=== PATIENT | male | born 1975 | race American Indian/Alaskan Native ===

== ENCOUNTER 2017-08-23 03:59 | Emergency (ER) | payer SELFPAY ==
[2017-08-23 04:12] VITALS: BP 150/96
--- NOTE | 2017-08-23 05:48 | Emergency Department Report ---
ED ENT HPI - General Chief complaint: Dental/Oral Stated complaint: TOOTH ACHE Time Seen by Provider: 08/23/17 05:35 Source: patient Mode of arrival: Ambulatory Limitations: No Limitations - History of Present Illness Initial comments: 42-year-old male past medical history diabetes presents with complaint of left- sided toothache with associated dental abscess. Patient is awake alert and oriented 3. nontoxic appearing, not in acute distress. Denies fevers or chills. States he has noticed some left-sided lower gumline swelling and has an active cavity in this area. Patient states she has follow-up with a dentist this upcoming Friday. complaint: tooth pain Onset/Timin -: week(s) Location: tooth # 1 - cavity here Severity: mild, moderate Severity scale (0 -10): 6 Quality: aching Worsens with: eating Context- Dental: history of dental caries, poor dental care Associated Symptoms: gum swelling, toothache - Related Data Previous Rx's Medication Instructions Recorded Last Taken Type Insulin NPH/Regular [NovoLIN 70/30] 20 unit SUB-Q BIDDIAB #1 vial 09/26/14 Unknown Rx Levofloxacin [Levaquin TAB] 500 mg PO QDAY #7 tablet 09/28/14 Unknown Rx Ondansetron [Zofran Odt] 4 mg PO Q8HR #12 tab.rapdis 04/21/15 Unknown Rx Amoxicillin [Trimox CAP] 500 mg PO Q8H #30 capsule 08/23/17 Unknown Rx Chlorhexidine Mouthwash [Peridex] 15 ml MM BID #1 bottle 08/23/17 Unknown Rx HYDROcodone/APAP 5-325 [[place] 1 each PO Q6HR PRN #12 tablet 08/23/17 Unknown Rx 5/325] Ibuprofen [Motrin] 800 mg PO Q8HR PRN #25 tablet 08/23/17 Unknown Rx Allergies Allergy/AdvReac Type Severity Reaction Status Date / Time No Known Allergies Allergy Verified 08/23/17 04:06 ED Dental HPI - General Chief complaint: Dental/Oral Stated complaint: TOOTH ACHE Time Seen by Provider: 08/23/17 05:35 Source: patient Mode of arrival: Ambulatory Limitations: No Limitations - Related Data Previous Rx's Medication Instructions Recorded Last Taken Type Insulin NPH/Regular [NovoLIN 70/30] 20 unit SUB-Q BIDDIAB #1 vial 09/26/14 Unknown Rx Levofloxacin [Levaquin TAB] 500 mg PO QDAY #7 tablet 09/28/14 Unknown Rx Ondansetron [Zofran Odt] 4 mg PO Q8HR #12 tab.rapdis 04/21/15 Unknown Rx Amoxicillin [Trimox CAP] 500 mg PO Q8H #30 capsule 08/23/17 Unknown Rx Chlorhexidine Mouthwash [Peridex] 15 ml MM BID #1 bottle 08/23/17 Unknown Rx HYDROcodone/APAP 5-325 [[place] 1 each PO Q6HR PRN #12 tablet 08/23/17 Unknown Rx 5/325] Ibuprofen [Motrin] 800 mg PO Q8HR PRN #25 tablet 08/23/17 Unknown Rx Allergies Allergy/AdvReac Type Severity Reaction Status Date / Time No Known Allergies Allergy Verified 08/23/17 04:06 ED Review of Systems ROS: Stated complaint: TOOTH ACHE Other details as noted in HPI Constitutional: denies: chills, fever Eyes: denies: eye pain, eye discharge, vision change ENT: dental pain. denies: ear pain, throat pain Respiratory: denies: cough, shortness of breath, wheezing Cardiovascular: denies: chest pain, palpitations Endocrine: no symptoms reported Gastrointestinal: denies: abdominal pain, nausea, diarrhea Genitourinary: denies: urgency, dysuria Musculoskeletal: denies: back pain, joint swelling, arthralgia Skin: denies: rash, lesions Neurological: denies: headache, weakness, paresthesias Psychiatric: denies: anxiety, depression Hematological/Lymphatic: denies: easy bleeding, easy bruising ED Past Medical Hx - Past Medical History Hx Congestive Heart Failure: No Hx Diabetes: Yes (new diabetic) Hx Asthma: No Hx COPD: No - Surgical History Past Surgical History?: No - Social History Smoking Status: Current Every Day Smoker Substance Use Type: Alcohol - Medications Home Medications: Home Medications Medication Instructions Recorded Confirmed Last Taken Type Insulin NPH/Regular [NovoLIN 70/30] 20 unit SUB-Q BIDDIAB #1 vial 09/26/14 Unknown Rx Levofloxacin [Levaquin TAB] 500 mg PO QDAY #7 tablet 09/28/14 Unknown Rx Ondansetron [Zofran Odt] 4 mg PO Q8HR #12 tab.rapdis 04/21/15 Unknown Rx Amoxicillin [Trimox CAP] 500 mg PO Q8H #30 capsule 08/23/17 Unknown Rx Chlorhexidine Mouthwash [Peridex] 15 ml MM BID #1 bottle 08/23/17 Unknown Rx HYDROcodone/APAP 5-325 [[place] 1 each PO Q6HR PRN #12 tablet 08/23/17 Unknown Rx 5/325] Ibuprofen [Motrin] 800 mg PO Q8HR PRN #25 tablet 08/23/17 Unknown Rx ED Physical Exam - General Limitations: No Limitations General appearance: alert, in no apparent distress - Head Head exam: Present: atraumatic, normocephalic - Eye Eye exam: Present: normal appearance, PERRL, EOMI - ENT ENT exam: Present: mucous membranes moist - Expanded ENT Exam Expanded Teeth exam: Present: dental tenderness # 1 - Dental Tenderness (dental tenderness here) Throat exam: Positive: normal inspection - Neck Neck exam: Present: normal inspection - Respiratory Respiratory exam: Present: normal lung sounds bilaterally. Absent: respiratory distress - Cardiovascular Cardiovascular Exam: Present: regular rate, normal rhythm. Absent: systolic murmur, diastolic murmur, rubs, gallop - GI/Abdominal GI/Abdominal exam: Present: soft, normal bowel sounds - Rectal Rectal exam: Present: deferred - Extremities Exam Extremities exam: Present: normal inspection - Back Exam Back exam: Present: normal inspection - Neurological Exam Neurological exam: Present: alert, oriented X3 - Psychiatric Psychiatric exam: Present: normal affect, normal mood - Skin Skin exam: Present: warm, dry, intact, normal color. Absent: rash ED Course Vital Signs 08/23/17 04:07 Temperature 98.6 F Pulse Rate 77 Respiratory 18 Rate Blood Pressure 150/96 O2 Sat by Pulse 97 Oximetry ED Medical Decision Making - Medical Decision Making A/P: dental cavities, toothache, dental abscess 1- Motrin when necessary, amoxicillin ten-day course, Orajel when necessary, Peridex mouthwash daily basis, short course codeine when necessary 2- I provided patient with information for multiple dental clinics. Patient claims he has follow-up this upcoming Friday with a dentist in the area 3- no clinical signs of facial abscess, no Christofer's angina, no induration or cellulitis of floor of mouth or tongue 4- patient able to tolerate by mouth before discharge 5- no signs of facial infection. Advised patient that if he does not take antibiotics with follow-up with a dentist as soon as possible that a can result in potentially serious or dangerous infection to develop in jaw or face. Patient states that he understood these instructions. I advised patient to return to the ED for any persistent unrelenting nausea or vomiting fever or chills or headaches. Critical care attestation.: If time is entered above; I have spent that time in minutes in the direct care of this critically ill patient, excluding procedure time. ED Disposition Clinical Impression: Toothache, Dental abscess Disposition: TO HOME OR SELFCARE Is pt being admited?: No Does the pt Need Aspirin: No Condition: Stable Instructions: Dental Abscess (ED), Dental Caries (ED), Toothache (ED) Prescriptions: Amoxicillin [Trimox CAP] 500 mg PO Q8H #30 capsule Chlorhexidine Mouthwash [Peridex] 15 ml MM BID #1 bottle HYDROcodone/APAP 5-325 [[place] 5/325] 1 each PO Q6HR PRN #12 tablet PRN Reason: Pain Ibuprofen [Motrin] 800 mg PO Q8HR PRN #25 tablet PRN Reason: Toothache Referrals: [facility] [Outside] - 3-5 Days Forms: Work/School Release Form(ED) Time of Disposition: 06:04
== END 2017-08-23 06:42 | disposition home or self-care (01) ==
LOC: ED 03:59
DX: K04.7 Periapical abscess without sinus (principal); E11.9 Type 2 diabetes mellitus without complications; F17.200 Nicotine dependence, unspecified, uncomplicated; Z79.4 Long term (current) use of insulin
CPT/HCPCS: 82962; 99282

== ENCOUNTER 2017-11-18 17:37 | Emergency (ER) | payer OTHER ==
[2017-11-18 19:59] LABS: Hemolysis Index 105
[2017-11-18 20:09] LABS: BUN/Creatinine Ratio 100; Blood Urea Nitrogen 20 mg/dL (9-20)
[2017-11-18 20:30] LABS: Mean Corpuscular Hemoglobin 33 pg (28-32); Mean Corpuscular Volume 86 fl (84-94); Platelet Count 286 K/mm3 (140-440); Red Blood Count 5.42 M/mm3 (3.65-5.03); Red Cell Distribution Width 13.9 % (13.2-15.2)
[2017-11-18 20:40] LABS: Calcium 9.1 mg/dL (8.4-10.2)
[2017-11-18] MEDS ORDERED: NACL 0.9% 1000 ML 1,000 ML IV ONE ×2 (21:01→23:14)
[2017-11-18] MEDS ORDERED: HumuLIN R IV ONE ×2 (21:01→23:14)
--- NOTE | 2017-11-18 21:05 | Emergency Department Report ---
ED General Adult HPI - General Chief complaint: Extremity Injury, Lower Stated complaint: BAD LEG CRAMPS Time Seen by Provider: 11/18/17 20:53 Source: patient Mode of arrival: Ambulatory Limitations: No Limitations - History of Present Illness Initial comments: Patient is 42 years old male with history of diabetes on metformin. Patient is a truck mechanic. Patient presented to the ER complaining of bilateral leg pain and cramping for the last 2-3 days. Patient denied any fever, nausea or vomiting or diarrhea. Patient also denied any chest pain or shortness of breaths or abdominal pain. - Related Data Previous Rx's Medication Instructions Recorded Last Taken Type Insulin NPH/Regular [NovoLIN 70/30] 20 unit SUB-Q BIDDIAB #1 vial 09/26/14 Unknown Rx levoFLOXacin [Levaquin TAB] 500 mg PO QDAY #7 tablet 09/28/14 Unknown Rx Ondansetron [Zofran Odt] 4 mg PO Q8HR #12 tab.rapdis 04/21/15 Unknown Rx Amoxicillin [Trimox CAP] 500 mg PO Q8H #30 capsule 08/23/17 Unknown Rx Chlorhexidine Mouthwash [Peridex] 15 ml MM BID #1 bottle 08/23/17 Unknown Rx HYDROcodone/APAP 5-325 [[place] 1 each PO Q6HR PRN #12 tablet 08/23/17 Unknown Rx 5/325] Ibuprofen [Motrin] 800 mg PO Q8HR PRN #25 tablet 08/23/17 Unknown Rx Allergies Allergy/AdvReac Type Severity Reaction Status Date / Time No Known Allergies Allergy Verified 08/23/17 04:06 ED Review of Systems ROS: Stated complaint: BAD LEG CRAMPS Other details as noted in HPI Comment: All other systems reviewed and negative Respiratory: denies: cough, shortness of breath Cardiovascular: denies: chest pain, palpitations, dyspnea on exertion, orthopnea Gastrointestinal: denies: abdominal pain, nausea, vomiting, diarrhea, constipation, hematemesis, melena, hematochezia Genitourinary: denies: urgency, dysuria Neurological: denies: headache, weakness, numbness, paresthesias, confusion, abnormal gait ED Past Medical Hx - Past Medical History Hx Congestive Heart Failure: No Hx Diabetes: Yes (new diabetic) Hx Asthma: No Hx COPD: No - Surgical History Past Surgical History?: No - Social History Smoking Status: Current Every Day Smoker - Medications Home Medications: Home Medications Medication Instructions Recorded Confirmed Last Taken Type Insulin NPH/Regular [NovoLIN 70/30] 20 unit SUB-Q BIDDIAB #1 vial 09/26/14 Unknown Rx levoFLOXacin [Levaquin TAB] 500 mg PO QDAY #7 tablet 09/28/14 Unknown Rx Ondansetron [Zofran Odt] 4 mg PO Q8HR #12 tab.rapdis 04/21/15 Unknown Rx Amoxicillin [Trimox CAP] 500 mg PO Q8H #30 capsule 08/23/17 Unknown Rx Chlorhexidine Mouthwash [Peridex] 15 ml MM BID #1 bottle 08/23/17 Unknown Rx HYDROcodone/APAP 5-325 [[place] 1 each PO Q6HR PRN #12 tablet 08/23/17 Unknown Rx 5/325] Ibuprofen [Motrin] 800 mg PO Q8HR PRN #25 tablet 08/23/17 Unknown Rx ED Physical Exam - General Limitations: No Limitations General appearance: alert, in no apparent distress - Head Head exam: Present: atraumatic, normocephalic, normal inspection - ENT ENT exam: Present: mucous membranes dry - Neck Neck exam: Present: normal inspection, full ROM. Absent: tenderness, meningismus, lymphadenopathy, thyromegaly - Respiratory Respiratory exam: Present: normal lung sounds bilaterally. Absent: respiratory distress, wheezes, rales, rhonchi, chest wall tenderness, accessory muscle use, decreased breath sounds, prolonged expiratory - Cardiovascular Cardiovascular Exam: Present: regular rate, normal rhythm, normal heart sounds - GI/Abdominal GI/Abdominal exam: Present: soft, normal bowel sounds. Absent: distended, tenderness, guarding, rebound, rigid, organomegaly, mass, bruit, pulsatile mass , hernia - Extremities Exam Extremities exam: Present: normal inspection, full ROM, normal capillary refill. Absent: tenderness, pedal edema, calf tenderness - Back Exam Back exam: Present: normal inspection, full ROM - Neurological Exam Neurological exam: Present: alert, oriented X3, CN II-XII intact, normal gait, reflexes normal - Skin Skin exam: Present: warm, dry, intact ED Course Vital Signs 11/18/17 11/18/17 11/19/17 18:11 21:35 01:04 Temperature 97.5 F L 98.2 F 97.8 F Pulse Rate 88 74 76 Respiratory 20 16 16 Rate Blood Pressure 151/99 Blood Pressure 152/87 136/91 [Left] O2 Sat by Pulse 98 97 97 Oximetry ED Medical Decision Making - Lab Data Result diagrams: 11/19/17 00:42 11/19/17 00:42 - Medical Decision Making Patient is 42 years old male with history of diabetes on metformin. Patient is a truck mechanic. Patient presented to the ER complaining of bilateral leg pain and cramping for the last 2-3 days. Patient denied any fever, nausea or vomiting or diarrhea. Patient also denied any chest pain or shortness of breaths or abdominal pain. Patient found to have a sodium of 124. Patient received a liter of normal saline. His sodium went up to 1:30. Patient stated that his symptom is much better. Patient d-dimer came back as more than 10,000. Since we don't have Doppler ultrasound at night I advised patient to return back to the ER after 9: 00 for the study. I cover the patient with Xorelto. Patient understood the instruction to return back and he stated that he will come back. Critical care attestation.: If time is entered above; I have spent that time in minutes in the direct care of this critically ill patient, excluding procedure time. ED Disposition Clinical Impression: Hyperglycemia due to type 2 diabetes mellitus, Hyponatremia, Neuropathy Disposition: - TO HOME OR SELFCARE Is pt being admited?: No Condition: Stable Instructions: Diabetes Mellitus Type 2 in Adults (ED), Deep Venous Thrombosis ( ED), Leg Edema (ED) Additional Instructions: Please return to the ER today before 4:00 PM for ultrasound of the leg. Referrals: PRIMARY CARE, [Primary Care Provider] - 3-5 Days
[2017-11-18 21:28] LABS: INR 0.82 (0.87-1.13); Partial Thromboplastin Time 23.3 Sec. (24.2-36.6)
[2017-11-18] MEDS ORDERED: XARELTO PO ONE (21:49)
[2017-11-18 22:32] LABS: Hematocrit 46.7 % (35.5-45.6)
[2017-11-18 22:36] LABS: Mean Corpuscular HGB Conc 39 % (32-34)
[2017-11-18 22:39] LABS: Basophils % (Manual) 0 % (0.0-1.8); Eosinophils % (Manual) 0 % (0.0-4.3); Total Cells Counted 100
[2017-11-18 22:41] LABS: Platelet Estimate Consistent w Auto; Rouleaux Few
[2017-11-19 01:04] VITALS: BP 136/91
[2017-11-19 01:48] LABS: Blood Urea Nitrogen 16 mg/dL (9-20); Hemolysis Index 170
[2017-11-19 01:57] LABS: BUN/Creatinine Ratio 80
[2017-11-19 02:20] LABS: Mean Corpuscular Hemoglobin 33 pg (28-32); Mean Corpuscular Volume 86 fl (84-94); Platelet Count 276 K/mm3 (140-440); Red Blood Count 4.82 M/mm3 (3.65-5.03); Red Cell Distribution Width 13.3 % (13.2-15.2)
[2017-11-19 02:25] LABS: Hematocrit 41.4 % (35.5-45.6); Hemoglobin 15.7 gm/dl (11.8-15.2)
[2017-11-19 03:09] LABS: Eosinophils % (Auto) 0.4 % (0.0-4.3); Monocytes # (Auto) 0.1 K/mm3 (0.0-0.8)
--- NOTE | 2017-11-19 03:11 | Emergency Department Report ---
ED Extremity Problem HPI - General Chief complaint: Extremity Injury, Lower Stated complaint: BAD LEG CRAMPS Time Seen by Provider: 11/18/17 20:53 Source: patient Mode of arrival: Ambulatory Limitations: No Limitations - Related Data Previous Rx's Medication Instructions Recorded Last Taken Type Insulin NPH/Regular [NovoLIN 70/30] 20 unit SUB-Q BIDDIAB #1 vial 09/26/14 Unknown Rx levoFLOXacin [Levaquin TAB] 500 mg PO QDAY #7 tablet 09/28/14 Unknown Rx Ondansetron [Zofran Odt] 4 mg PO Q8HR #12 tab.rapdis 04/21/15 Unknown Rx Amoxicillin [Trimox CAP] 500 mg PO Q8H #30 capsule 08/23/17 Unknown Rx Chlorhexidine Mouthwash [Peridex] 15 ml MM BID #1 bottle 08/23/17 Unknown Rx HYDROcodone/APAP 5-325 [[place] 1 each PO Q6HR PRN #12 tablet 08/23/17 Unknown Rx 5/325] Ibuprofen [Motrin] 800 mg PO Q8HR PRN #25 tablet 08/23/17 Unknown Rx Allergies Allergy/AdvReac Type Severity Reaction Status Date / Time No Known Allergies Allergy Verified 08/23/17 04:06 ED Review of Systems ROS: Stated complaint: BAD LEG CRAMPS Other details as noted in HPI ED Past Medical Hx - Past Medical History Hx Congestive Heart Failure: No Hx Diabetes: Yes (new diabetic) Hx Asthma: No Hx COPD: No - Surgical History Past Surgical History?: No - Social History Smoking Status: Current Every Day Smoker - Medications Home Medications: Home Medications Medication Instructions Recorded Confirmed Last Taken Type Insulin NPH/Regular [NovoLIN 70/30] 20 unit SUB-Q BIDDIAB #1 vial 09/26/14 Unknown Rx levoFLOXacin [Levaquin TAB] 500 mg PO QDAY #7 tablet 09/28/14 Unknown Rx Ondansetron [Zofran Odt] 4 mg PO Q8HR #12 tab.rapdis 04/21/15 Unknown Rx Amoxicillin [Trimox CAP] 500 mg PO Q8H #30 capsule 08/23/17 Unknown Rx Chlorhexidine Mouthwash [Peridex] 15 ml MM BID #1 bottle 08/23/17 Unknown Rx HYDROcodone/APAP 5-325 [[place] 1 each PO Q6HR PRN #12 tablet 08/23/17 Unknown Rx 5/325] Ibuprofen [Motrin] 800 mg PO Q8HR PRN #25 tablet 08/23/17 Unknown Rx ED Physical Exam - General Limitations: No Limitations ED Course Vital Signs 11/18/17 18:11 Temperature 97.5 F L Pulse Rate 88 Respiratory 20 Rate Blood Pressure 151/99 O2 Sat by Pulse 98 Oximetry ED Medical Decision Making - Lab Data Result diagrams: 11/18/17 19:33 Critical care attestation.: If time is entered above; I have spent that time in minutes in the direct care of this critically ill patient, excluding procedure time. ED Disposition Condition: Stable Referrals: PRIMARY CARE, [Primary Care Provider] - 3-5 Days
[2017-11-19 03:31] LABS: Basophils % (Manual) 0 % (0.0-1.8); Platelet Estimate Consistent w Auto; Total Cells Counted 100
== END 2017-11-19 03:35 | disposition home or self-care (01) ==
LOC: ED 17:37
DX: G62.9 Polyneuropathy, unspecified (principal); E87.1 Hypo-osmolality and hyponatremia; E11.65 Type 2 diabetes mellitus with hyperglycemia; F17.200 Nicotine dependence, unspecified, uncomplicated; Z79.4 Long term (current) use of insulin
CPT/HCPCS: 36415; 80048; 82962; 85007; 85025; 85379; 85610; 85730; 96361; 96374; 96376; 99283; J7030; J1815

== ENCOUNTER 2019-07-26 11:04 | Emergency (ER) | payer SELFPAY ==
[2019-07-26 11:17] VITALS: BP 152/91
--- NOTE | 2019-07-26 11:33 | Emergency Department Report ---
Chief Complaint: Upper Respiratory Infection Stated Complaint: CHEST PAIN/DIZZINESS/HEADACHE/BLURRED VISION Time Seen by Provider: 07/26/19 11:28 - HPI History of Present Illness: 44-year-old F [place] male history of diabetes presents emerged department complaining of driving around with a car with excessive team due to Calorie count Over the past few weeks and when driving began to develop a headache with this with some lightheadedness and occasional blurred blurred vision and some shortness of breath dyspepsia symptoms resolve once he gets out of the vehicle. He alerted his employer, by him [facility] to be checked for COVID-19 and also, monoxide poisoning currently he is asymptomatic - ROS Review of Systems: As per HPI all some systems are negative - Exam Vital Signs: Vital Signs 07/26/19 07/26/19 11:16 11:21 Temperature 97.9 F 97.9 F Pulse Rate 78 78 Respiratory 16 16 Rate Blood Pressure 152/91 [Right] O2 Sat by Pulse 98 98 Oximetry Physical Exam: Vital signs stable General: Patient is well nourished, well developed, awake and alert, resting comfortably in no acute distress Head: Normocephalic and atraumatic Eyes: Normal inspection, extraocular muscles intact, no conjunctival pallor Ear, nose, throat: Normal external exam Neck: Normal range of motion Respiratory: Patient is in no respiratory distress, lungs CTAB Cardiovascular: Patient is not tachycardic, RRR without murmur appreciated GI: Abd SNT with no guarding or rebound; +BS normoactive x 4, no tympanny to percussion Back: Normal inspection of the back with good strength and range of motion throughout all ext Extremities: pulses intact with good cap refills, no LE pitting edema or calf tenderness Neuro: The patient is alert and oriented to person, place, and time, appropriately conversive, with 5/5 bilat UE/LE strength, no gross motor or sensory defects noted. Coordination appears to be adequate. Skin: Warm, dry, and intact MSE screening note: Focused history and physical exam performed. Due to findings the following was ordered: ED Medical Decision Making - Medical Decision Making Mr. Jeronimo reports a previous exposure no symptoms at current. He is currently asymptomatic and of good spirits only came as he was instructed by his employer. States that he does feel comfortable with with the discharge plan and his ability to follow-up. Currently he is asymptomatic ED Disposition for MSE Clinical Impression: Normal appearance, H/O carbon monoxide poisoning Disposition: [id number]/PSY UNIT Condition: Stable Instructions: Dyspnea (ED), Carbon Monoxide Exposure (ED) Additional Instructions: Symptoms are associated with what appears to be previous carbon monoxide exposure please refrain from utilizing a carbon monoxide detector and educate yourself on the process to avoid future exposure Referrals: [facility] [Provider Group] - 3-5 Days
== END 2019-07-26 11:42 ==
LOC: ED 11:04
DX: R51 Headache (principal); R42 Dizziness and giddiness; R06.02 Shortness of breath
CPT/HCPCS: 99282

== ENCOUNTER 2020-12-16 09:00 | Emergency (ER) | payer SELFPAY ==
[2020-12-16 09:05] VITALS: BP 185/122
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
[2020-12-16] MEDS ORDERED: IBUPROFEN 800 MG TAB PO STA (10:07)
[2020-12-16] MEDS ORDERED: ACETAMINOPHEN 500 MG TAB PO STA (10:07)
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
[2020-12-16 11:55] LABS: Bilirubin,Urine NEG (Negative); Blood,Urine NEG (Negative); Color,Urine Yellow (Yellow); Urobilinogen,Urine < 2.0 mg/dL (<2.0); WBC,Urine < 1.0 /HPF (0.0-6.0)
[2020-12-16 12:00] LABS: Protein,Urine >500 mg/dL (Negative)
== END 2020-12-16 13:27 | disposition home or self-care (01) ==
LOC: ED 09:00
DX: M54.50 Low back pain, unspecified (principal); R35.0 Frequency of micturition; E11.9 Type 2 diabetes mellitus without complications; F17.200 Nicotine dependence, unspecified, uncomplicated; V87.7XXA Person injured in collision between other specified motor vehicles (traffic), initial encounter; Y93.89 Activity, other specified; Y92.488 Other paved roadways as the place of occurrence of the external cause; Y99.8 Other external cause status
CPT/HCPCS: 72100; 81001; 82962; 99284

== ENCOUNTER 2021-09-21 12:10 | Emergency (ER) | payer SELFPAY ==
[2021-09-21 19:54] VITALS: BP 195/98
== END 2021-09-21 22:32 | disposition left against medical advice (07) ==
LOC: ED 12:10
DX: R73.9 Hyperglycemia, unspecified (principal); Z53.21 Procedure and treatment not carried out due to patient leaving prior to being seen by health care provider
CPT/HCPCS: 82962